=== PATIENT | male | born 1965 | race Caucasian/White ===

== ENCOUNTER 2020-08-17 15:20 | Outpatient (REF) | payer MEDICAID, SELFPAY ==
[2020-08-21 11:31] LABS: Patient Race White; SARS-CoV-2 RNA Undetected (Undetected); SARS-CoV-2 Specimen Source Nasal
== END 2020-08-17 15:40 ==
LOC: NCHCN 15:20
PROVIDERS: PCP Family Medicine; Visit Provider Nurse Practitioner Family
DX: Z20.828 Contact with and (suspected) exposure to other viral communicable diseases (principal)
CPT/HCPCS: U0003

== ENCOUNTER 2021-09-17 18:29 | Outpatient (REF) | payer MEDICAID, SELFPAY ==
[2021-09-17 16:28] LABS: HGB 13.5 g/dL (13.5-17.5); MCH 31.7 pg (27.0-33.0); MCHC 32.9 % (32.0-36.0); MCV 96.2 fL (80-95); MPV 9.1 fL (8.0-11.0); Platelet Count 266 10^3/uL (130-400); RBC 4.26 10^6/uL (4.36-5.78); RDW 12.5 % (11.8-14.1)
[2021-09-17 16:42] LABS: C-Reactive Protein 0.05 mg/dL (0.0-0.3); TSH (W/Ref FT4) 1.91 uIU/mL (0.36-3.74)
[2021-09-18 13:12] LABS: COVID-19 RT-PCR UVMMC Result Negative (Negative)
[2021-09-19 15:46] LABS: ANA Interpretation Negative (Negative)
== END 2021-09-17 18:30 | disposition home or self-care (01) ==
LOC: NCHCN 18:29
PROVIDERS: PCP Family Medicine; Visit Provider Family Medicine
DX: Z20.822 Contact with and (suspected) exposure to COVID-19 (principal); R51.9 Headache, unspecified; R68.89 Other general symptoms and signs; D70.9 Neutropenia, unspecified; K12.0 Recurrent oral aphthae
CPT/HCPCS: 85027; U0003; 84443; 86038; 86140

== ENCOUNTER 2021-10-17 16:12 | Outpatient (REF) | payer MEDICAID, SELFPAY ==
[2021-10-17 16:26] LABS: ALT 31 U/L (16-63); AST 23 U/L (15-37); Albumin 3.9 g/dL (3.4-5.0); Alkaline Phosphatase 86 U/L (46-116); Anion Gap 6.5 mmol/L (3-11); BUN 20 mg/dL (7-18); Bilirubin, Total 0.5 mg/dL (0.2-1.0); CO2 31.5 mmol/L (21.0-32.0); CREATININE 0.9 mg/dL (0.70-1.30); Calcium 9.2 mg/dL (8.5-10.1); Chloride 105 mmol/L (98-107); Folate 19.8 ng/mL (8.6-20.0); Glucose 78 mg/dL (74-106); Potassium 4.4 mmol/L (3.5-5.1); Sodium 143 mmol/L (136-145); Total Protein 7.4 g/dL (6.4-8.2); Vitamin B12 699 pg/mL (193-986)
== END 2021-10-17 16:13 | disposition home or self-care (01) ==
LOC: NCHCN 16:12
PROVIDERS: PCP Family Medicine; Visit Provider Family Medicine
DX: D75.89 Other specified diseases of blood and blood-forming organs (principal); D70.9 Neutropenia, unspecified; R42 Dizziness and giddiness; Q63.1 Lobulated, fused and horseshoe kidney
CPT/HCPCS: 80053; 82607; 82746

== ENCOUNTER 2021-12-04 02:10 | Outpatient (CLI) | payer MEDICAID, SELFPAY ==
--- NOTE | 2021-12-04 10:06 | DI.CT_ITS ---
Exam(s) CT SINUS WO EXAM: CT SINUS WO CLINICAL HISTORY: History of Fess, chronic right facial pain,h/o sinusitis,headache,r51.9, TECHNIQUE: COMPARISON: No exams were available for comparison FINDINGS: Noncontrast CT examination of the paranasal sinuses was performed. Visualized brain is unremarkable. Mastoid air cells are clear. Temporal bone structures appear inta ct. No focal orbital pathology identified by noncontrast criteria. There is a prior right maxillary antrectomy and apparent partial resection of right middle turbinate. Right maxillary antrum is clear. There are rounded radiodensities occupying majority of the volume of the left maxillary antrum consis tent with proteinaceous retention cysts or polyps. Ostiomeatal complex of the left maxillary antrum appears intact. No other specific abnormality of the nasal cavity noted. There is slight mucoperiosteal thickening of the ethmoid air cells bilaterally. Sphenoid and frontal sinuses appear clear. IMPRESSION: Prior right maxillary antrectomy, left maxillary retention cysts versus polyps. No other significant findings. RADIATION DOSE DELIVERED: 245.06mGy.cm Total DLP !Error CTDIvol RADIATION OPTIMIZATION: All CT scans at this facility use at least one of these dose optimization te chniques: automated exposure control; mA and/or kV adjustment per patient size (includes targeted exa ms where dose is matched to clinical indication); or iterative reconstruction.
== END 2021-12-04 02:30 ==
PROVIDERS: PCP Family Medicine; Visit Provider Otolaryngology
DX: G50.1 Atypical facial pain (principal); G89.29 Other chronic pain; H57.11 Ocular pain, right eye; Z87.09 Personal history of other diseases of the respiratory system; J34.89 Other specified disorders of nose and nasal sinuses; Z98.890 Other specified postprocedural states
CPT/HCPCS: 70486

== ENCOUNTER → 2023-10-15 02:16 | Outpatient (CLI) | payer MEDICAID, SELFPAY ==
--- NOTE | 2023-10-15 13:25 | DI.MRI_ITS ---
Exam(s) MR LOWER JOINT LT WO EXAM: MR LOWER JOINT LT WO CLINICAL HISTORY: H/O LT MEDIAL MENISCAL TAR,NOW PAIN AND DISABILITY AFTER RE-INJURY,M23.309. TECHNIQUE: Multiplanar multisequence MRI was performed. COMPARISON: MR MRI L LOWER JOINT WO CONT from 10/25/2014 FINDINGS: BONES: There is no fracture or contusion pattern. JOINTS: A small joint effusion is present. Articular cartilage: Patellofemoral joint: Articular cartilage is unremarkable. Medial femoral tibial joint: Articular cartilage is unremarkable. Lateral femoral tibial joint: Articular cartilage is unremarkable. TENDONS: Extensor mechanism: Unremarkable. Medial retinaculum: Unremarkable. Lateral retinaculum: Unremarkable. Popliteus: Unremarkable. MUSCLES: Unremarkable. MENISCI: The medial meniscus shows abnormal signal in the posterior horn, similar to prior exam. New tear alma ntified. The lateral meniscus is unremarkable. SOFT TISSUES: In tiny Sawyer's cyst. LIGAMENTS: Anterior Cruciate: Unremarkable. Posterior Cruciate: Unremarkable. Medial Collateral:Mild amount of surrounding fluid. No focal tear. Lateral Collateral: Unremarkable. IMPRESSION: No significant change in appearance of posterior horn of the medial meniscus with abnormal inferior s urfacing tear. No evidence of new meniscal tear. No evidence of ligament tear. DATA REPOSITORY:
== END ==
PROVIDERS: PCP Family Medicine; Visit Provider Family Medicine
DX: M23.322 Other meniscus derangements, posterior horn of medial meniscus, left knee (principal)
CPT/HCPCS: 73721

== ENCOUNTER 2024-01-27 14:19 | Outpatient (CLI) | payer MEDICAID, SELFPAY ==
--- NOTE | 2024-01-27 13:42 | DI.RAD_ITS ---
Exam(s) XR KNEE LT 3V AP,LAT,KAZ EXAM: XR KNEE LT 3V AP,LAT,KAZ CLINICAL HISTORY: LEFT KNEE PAIN. TECHNIQUE: 2D digital imaging was performed. Three views. COMPARISON: CR LEFT KNEE LIMITED 1 OR 2 VIEWS from 10/21/2014 MR MR LOWER JOINT LT WO from 10/15/2023 FINDINGS: BONES: No acute fracture is present. No bony destructive lesion is seen. JOINTS: The knee is normally aligned. No joint effusion is seen. Mild medial femoral tibial joint spa ce narrowing. Minimal periarticular spurring. Patellofemoral joint space is maintained in shows you r spurring SOFT TISSUE: Normal. IMPRESSION: Mild degenerative changes. DATA REPOSITORY: RADIATION DOSE DELIVERED:
== END 2024-01-27 14:20 | disposition home or self-care (01) ==
LOC: DIORS 14:19
PROVIDERS: PCP Family Medicine; Visit Provider Student in an Organized Health Care Education/Training Program
DX: M17.12 Unilateral primary osteoarthritis, left knee (principal)
CPT/HCPCS: 73562

== ENCOUNTER 2024-11-11 14:26 | Outpatient (REF) | payer MEDICAID, SELFPAY ==
[2024-11-11 16:01] LABS: Abs Immature Grans 0.01 10^3/uL (0.0-0.06); Absolute Basophil Count 0.04 10^3/uL (0.0-0.2); Absolute Eosinophil Count 0.05 10^3/uL (0.0-0.7); Absolute Lymphocyte Count 0.91 10^3/uL (1.2-3.4); Absolute Monocyte Count 0.54 10^3/uL (0.1-0.8); Eosinophils % 1.2 %; HCT 39.7 % (40.0-50.0); HGB 13.3 g/dL (13.5-17.5); Immature Grans % 0.2 %; Lymphocytes % 21.9 %; MCH 32.4 pg (27.0-33.0); MCHC 33.5 % (32.0-36.0); MCV 97 fL (80-95); Neutrophils % 62.7 %; Platelet Count 259 10^3/uL (130-400); RBC 4.11 10^6/uL (4.36-5.78); RDW-SD 42.6 fL; WBC 4.15 10^3/uL (4.4-10.8)
[2024-11-11 16:20] LABS: ALT 21 U/L (16-63); AST 22 U/L (15-37); Albumin 3.8 g/dL (3.4-5.0); Alkaline Phosphatase 96 U/L (46-116); Anion Gap 6.1 mmol/L (3-11); BUN 19 mg/dL (7-18); Bilirubin, Total 0.53 mg/dL (0.2-1.0); CO2 29.9 mmol/L (21.0-32.0); Calcium 9.5 mg/dL (8.5-10.1); Chloride 105 mmol/L (98-107); Estimated GFR 86.16 (mL/min/1.73m2); Glucose 94 mg/dL (74-106); Potassium 4.7 mmol/L (3.5-5.1); Sodium 141 mmol/L (136-145); TSH (W/Ref FT4) 2.84 uIU/mL (0.36-3.74); Total Protein 7.6 g/dL (6.4-8.2)
[2024-11-12 20:57] LABS: Tissue Transglutaminase Ab IgA <1.2 U/mL (<4.0); Tissue Transglutaminase Ab IgG 4.6 U/mL
== END 2024-11-11 14:27 | disposition home or self-care (01) ==
LOC: NCHCN 14:26
PROVIDERS: PCP Family Medicine; Visit Provider Student in an Organized Health Care Education/Training Program
DX: R10.9 Unspecified abdominal pain (principal); Z13.228 Encounter for screening for other metabolic disorders
CPT/HCPCS: 80053; 86364; 83516; 84443; 85025

== ENCOUNTER 2024-12-02 19:47 | Outpatient (REF) | payer MEDICAID, SELFPAY ==
[2024-12-02 20:00] LABS: Abs Immature Grans 0.01 10^3/uL (0.0-0.06); Absolute Basophil Count 0.04 10^3/uL (0.0-0.2); Absolute Eosinophil Count 0.07 10^3/uL (0.0-0.7); Absolute Lymphocyte Count 0.86 10^3/uL (1.2-3.4); Absolute Monocyte Count 0.64 10^3/uL (0.1-0.8); Absolute Neutrophil Count 3.42 10^3/uL (1.2-6.7); Basophils % 0.8 %; Eosinophils % 1.4 %; HCT 39.4 % (40.0-50.0); HGB 13.1 g/dL (13.5-17.5); Immature Grans % 0.2 %; Lymphocytes % 17.1 %; MCH 32.6 pg (27.0-33.0); MCHC 33.2 % (32.0-36.0); MCV 98 fL (80-95); MPV 9.2 fL (8.0-11.0); Monocytes % 12.7 %; Neutrophils % 67.8 %; Platelet Count 265 10^3/uL (130-400); RBC 4.02 10^6/uL (4.36-5.78); RDW 12.4 % (11.8-14.1); RDW-SD 44.8 fL; WBC 5.04 10^3/uL (4.4-10.8)
[2024-12-02 20:33] LABS: Vitamin B12 660 pg/mL (193-986)
== END 2024-12-02 19:48 | disposition home or self-care (01) ==
LOC: NCHCN 19:47
PROVIDERS: PCP Family Medicine; Visit Provider Student in an Organized Health Care Education/Training Program
DX: D64.9 Anemia, unspecified (principal)
CPT/HCPCS: 82607; 85025

== ENCOUNTER 2025-02-21 10:55 | Outpatient (REF) | payer MEDICAID, SELFPAY ==
[2025-02-21 15:43] LABS: Abs Immature Grans 0.01 10^3/uL (0.0-0.06); Absolute Basophil Count 0.04 10^3/uL (0.0-0.2); Absolute Eosinophil Count 0.04 10^3/uL (0.0-0.7); Absolute Lymphocyte Count 0.94 10^3/uL (1.2-3.4); Absolute Monocyte Count 0.46 10^3/uL (0.1-0.8); Basophils % 1.1 %; Eosinophils % 1.1 %; HCT 40.1 % (40.0-50.0); HGB 13.7 g/dL (13.5-17.5); Immature Grans % 0.3 %; Lymphocytes % 24.8 %; MCH 32.5 pg (27.0-33.0); MCHC 34.2 % (32.0-36.0); MCV 95 fL (80-95); MPV 9.2 fL (8.0-11.0); Monocytes % 12.1 %; Neutrophils % 60.6 %; Platelet Count 243 10^3/uL (130-400); RBC 4.21 10^6/uL (4.36-5.78); RDW 12.2 % (11.8-14.1); RDW-SD 42.5 fL; WBC 3.79 10^3/uL (4.4-10.8)
[2025-02-22 19:13] LABS: Calculated LDL 136 mg/dL (<100); Cholesterol 220 mg/dL (<200); HDL Cholesterol 70 mg/dL (>or=40); Triglyceride 73 mg/dL (<150)
== END 2025-02-21 10:56 | disposition home or self-care (01) ==
LOC: NCHCN 10:55
PROVIDERS: PCP Student in an Organized Health Care Education/Training Program; Visit Provider Student in an Organized Health Care Education/Training Program
DX: D64.9 Anemia, unspecified (principal); Z13.220 Encounter for screening for lipoid disorders
CPT/HCPCS: 80061; 85025

== ENCOUNTER 2025-05-17 11:18 | Emergency (ER) | payer MEDICAID, SELFPAY ==
[2025-05-17 11:35] VITALS: BP 121/75; PULSE 55; RESP 16; TEMP 36.7; O2SAT 98
--- NOTE | 2025-05-17 11:51 | W.ED.GENAD ---
Discharge Plan Disposition Patient Disposition: Home Condition: Stable Discharge Details Clinical Impression: Right knee pain Primary Care Provider: Rom Brooks ED Provider: Michele Mayberry Home Meds and New Rx's Prescriptions: Continued ibuprofen 200 mg capsule 200 mg PO Q6H PRN magnesium oxide 500 mg capsule 500 mg PO BID PRN Discharge Instructions Instructions: Knee Pain ED Additional Instructions: You were seen in the emergency department for the pain in your right knee from an injury chainsaw kicking back into your knee, you have no bony abnormality, there is a small effusion indicating a possible internal injury of the knee like a meniscus injury but your exam was suspicious for. We have provided you with a hinged knee brace, please weight-bear as tolerated, rest, ice, compress and elevate the knee often over the next few days. Please use therapeutic dosing of Tylenol (acetamenophen) & Advil (ibuprofen) in an alternating fashion as follows: Take 1000mg of Tylenol every 6 hours without missing doses- that is 4 times per day. Retirement in between the Tylenol dosings, take 400-600mg of Advil also on a 6 hour schedule, that is also 4 times per day. The daily maximum dosing of Tylenol is 4000mg, and the daily maximum dosing of Advil is 2400mg. This is safe to do for weeks. Please note that some common cold medications & prescription pain medications may contain acetamenophen and you need to read OTC drug labels and factor that in to maximum daily dosings. Please follow-up with orthopedics for persistent pain lasting longer than another 7 days please return for any signs of neurovascular compromise distal to the right knee. Referrals: [facility] [Provider Group] Rom Brooks [Primary Care Provider, Medicine] Discharge Data Discharge Date/Time-TO BE ENTERED AT DEPARTURE: 05/17/25 13:11 HPI General Date/Time Provider Initiated Documentation: 05/17/25 11:41. HPI Narrative: 59 year-old male presents to ED today by POV/ambulating with a chief complaint of minor swelling to R darling for the past two weeks after a blunt impact of the butt of a chainsaw to the area when it bucked while cutting a log. Quality described as bruise around tibial tuberosity, minor swelling to ankle- continued pain, no radiation to skin changes of bruise, instability of knee, numbness/tingling, inability to bear weight. Patient is R-side dominant. Severity is described as moderate. Palliating factors include conservative management at home without relief. Provoking factors include nothing specific. Patient has an old meniscus injury on contralateral side, feels similar. Patient not anticoagulated. Related Data Home Medications ?Medication ?Instructions ?Recorded ?Confirmed ibuprofen 200 mg capsule 200 mg PO Q6H PRN 08/27/21 05/17/25 magnesium oxide 500 mg capsule 500 mg PO BID PRN 08/27/21 05/17/25 Allergies Allergy/AdvReac Type Severity Reaction Status Date / Time Enviromental Allergy Other (See Uncoded 05/17/25 11:38 Comment) General Stated Complaint: Orthopedic RODRIGUEZ: 4 Review of Systems All systems reviewed & are unremarkable except as noted in HPI and below Exam Narrative Exam Narrative: GENERAL APPEARANCE: Well-nourished, non-toxic, awake and alert, atraumatic, no acute distress. SKIN: Warm, pink, dry, intact, without rashes/lesions/ulcerations. HEAD: Normocephalic, atraumatic, normal hair distribution for gender/age. EYES: Normal conjunctiva, no exudates on lids/lashes. ENT: Nares patent, no circumoral cyanosis, no facial swelling NECK: Supple, trachea midline, painless cervical ROM. LUNGS/CHEST: Non-labored respirations, normal A/P diameter, symmetrical expansion, no chest wall deformity HEART (CV/PV): Very minor R ankle peripheral edema, no JVD. ABDOMEN: Soft, non-distended, no guarding. MSK: Normal ROM, no swelling/deformity to bilateral UEs or LEs, moving all extremities without weakness, no cyanosis, spine midline without tenderness, normal curvature, R knee MacMurray positive, negative anterior drawer, no crepitus, no gross swelling, no popliteal fossa tenderness, patella mobile NEURO: Mental Status AAOx4 - alert to person, place, time, events No facial droop, no forehead involvement. Motor: No focal weakness - strength 5/5 in bilateral UEs and LEs, proximal and distal, symmetric. Sensory: sensation intact to light touch globally. PSYCH: euthymic, cooperative, pleasant, appropriate speech Course Vital Signs Vital signs: Vital Signs Temperature 36.7 C 05/17/25 11:35 Pulse 55 L 05/17/25 11:35 Respiratory Rate 16 05/17/25 11:35 Blood Pressure 121/75 05/17/25 11:35 Pulse Oximetry 98 05/17/25 11:35 Temperature 36.7 C 05/17/25 11:35 Temperature Source Oral 05/17/25 11:35 Pulse 55 L 05/17/25 11:35 Respiratory Rate 16 05/17/25 11:35 Blood Pressure 121/75 05/17/25 11:35 Pulse Oximetry 98 05/17/25 11:35 Oxygen Delivery Method Room Air 05/17/25 11:35 Oxygen Flow Rate 0 05/17/25 11:35 Medical Decision Making This dictation utilizes [id number] dictation software and may contain unedited grammatical errors. 59 year-old male presents to ED today by POV/ambulating with a chief complaint of minor swelling to R darling for the past two weeks after a blunt impact of the butt of a chainsaw to the area when it bucked while cutting a log. Quality described as bruise around tibial tuberosity, minor swelling to ankle- continued pain, no radiation to skin changes of bruise, instability of knee, numbness/tingling, inability to bear weight. Patient is R-side dominant. Severity is described as moderate. Palliating factors include conservative management at home without relief. Provoking factors include nothing specific. Patient has an old meniscus injury on contralateral side, feels similar. Patients' medical history: Noncontributory. Family and social history: Noncontributory. Pertinent exam findings / vital signs include minor bruise to tibial tuberosity area, MacMurray positive, negative anterior drawer, patella mobila, no crepitus, long bones above and below knee stable. Differential / pathologies of concern include fracture, internal knee injury. Diagnostic studies of: -XR R Knee - no fracture seen, does show two loose bodies. Interventions of: -Hinged knee brace, recommend PCP referral to orthopaedics. ED Course/Assessment/Plan: 59-year-old male presents injury was impacted by the chainsaw cutting tree, feels similar to a cold meniscus injury and does have a Bert positive, no major effusion or fracture seen on the x-ray and his condition is quite minor, may be some dependent edema in the ankle from not elevating it, recommend RICE therapy provided hinged knee brace and recommend routine orthopedic follow-up. Findings not consistent with fracture or neurovascular compromise. Disposition of Right Knee Pain. Patient verbalized understanding of the plan and return to ED criteria and engaged in shared decision making. Medical Records Medical records reviewed: Yes I reviewed the patient's medical records. Imaging Data Radiologic Study: Attestation: I personally reviewed and interpreted this imaging study as follows: Imaging: X-Ray Radiologist's impression: EXAM: XR KNEE RT 3V AP,LAT,KAZ CLINICAL HISTORY: R knee injury. TECHNIQUE: 2D digital imaging was performed of the right knee. Three views obtained. AP, lateral and PA tunnel views were obtained. COMPARISON: There are no priors for comparison. FINDINGS: BONES: No acute fracture is present. No bony destructive lesion is seen. JOINTS: There is mild joint space narrowing in the medial femoral tibial joint. No joint effusion is seen. There are 2 osseous densities seen posteriorly which may represent loose bodies. SOFT TISSUE: Normal. IMPRESSION: There is no acute fracture or dislocation. PFSH All Active Problems (Updated 05/17/25 @ 12:40 by AMIE Macdonald) Right knee pain (Acute) Osteoarthritis of left knee (Acute) Tear of medial meniscus of left knee (Acute) History of impacted cerumen (Acute) Chronic facial pain (Acute) History of sinusitis (Acute) Pain, eye, right (Acute) Medical History (Updated 05/17/25 @ 12:40 by AMIE Macdonald) Degenerative disc disease Carpal tunnel syndrome Sinus bradycardia, chronic H/O onychomycosis Anxiety Hyperlipidemia Cold intolerance Aphthous ulcer Neutropenia Headache Dizziness Horseshoe kidney TMJ (temporomandibular joint syndrome) Rosacea Eczema Genital herpes Irritable bowel syndrome Spinal arthritis Constipation Surgical History (Updated 11/20/21 @ 11:48 by Macrina SPAULDING) History of endoscopy History of colonoscopy 10/2021 - Normal History of endoscopic sinus surgery [facility] [place] end of , beginning of nov 2021 Family History Father Gout Mother Rosacea Other Hypertension Social History Smoking/Tobacco Use Status: Never Smoking risk assessment performed?: Yes Alcohol Intake: current Alcohol Intake frequency: holidays/special occasions only Drug use: Never Substance use type: does not use and former substance user 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
--- NOTE | 2025-05-17 12:25 | DI.RAD_ITS ---
Exam(s) XR KNEE RT 3V AP,LAT,KAZ EXAM: XR KNEE RT 3V AP,LAT,KAZ CLINICAL HISTORY: R knee injury. TECHNIQUE: 2D digital imaging was performed of the right knee. Three views obtained. AP, lateral and PA tunnel views were obtained. COMPARISON: There are no priors for comparison. FINDINGS: BONES: No acute fracture is present. No bony destructive lesion is seen. JOINTS: There is mild joint space narrowing in the medial femoral tibial joint. No joint effusion is seen. There are 2 osseous densities seen posteriorly which may represent loose bodies. SOFT TISSUE: Normal. IMPRESSION: There is no acute fracture or dislocation. DATA REPOSITORY: RADIATION DOSE DELIVERED:
== END 2025-05-17 13:11 | disposition home or self-care (01) ==
LOC: ER 12:46
PROVIDERS: Emergency Provider Physician Assistant; PCP Student in an Organized Health Care Education/Training Program
DX: M25.572 Pain in left ankle and joints of left foot (principal); M79.661 Pain in right lower leg; M25.461 Effusion, right knee
CPT/HCPCS: 73562; 99283

== ENCOUNTER 2025-05-31 01:28 | Outpatient (CLI) | payer MEDICAID, SELFPAY ==
--- NOTE | 2025-05-31 06:30 | DI.MRI_ITS ---
Exam(s) MR LOWER JOINT RT WO EXAM: MR LOWER JOINT RT WO CLINICAL HISTORY: R KNEE PAIN,internal derangement rt knee,m 25.561,m23.91 TECHNIQUE: Multiplanar multisequence MRI of the knee was performed. COMPARISON: MR MRI L LOWER JOINT WO CONT from 10/25/2014 MR MR LOWER JOINT LT WO from 10/15/2023 CR XR KNEE RT 3V AP,LAT,KAZ from 05/17/2025 FINDINGS: EFFUSION: There is a small amount of increased joint fluid. There is no Sawyer cyst in the popliteal fossa. There is a loose intra-articular body in the posterior aspect of the knee just behind the lower aspect of the ACL and corresponding to what was seen on recent plain radiographs, this measuring 7 by 7 mm MARROW:There is significant bone edema evident at the level of the anterior tibial tubercle and throughout the metaphysis and partially visualized proximal diaphysis of the tibia within the field of view of this study. There is subcutaneous edema extending from the anterior tibial level down to the anterior tibial tubercle. Also mild bone edema evident in the lateral tibial plateau. There is no abnormal intraosseous signal in the femoral condyles nor within the patella. No abnormal signal within the patella itself. PATELLOFEMORAL COMPARTMENT: There is no evidence of tear of the patellar ligament.. There is a small focus of fluid signal in the most inferior lateral aspect of the Hoffa fat pad at this level. There does not, however, appear to be a significant focus of signal abnormality within the patellar ligament itself. Also no signal abnormality in the visualized distal quadriceps tendon. There is only mild generalized thinning of the retropatellar cartilage. No evidence of osteochondral defects at this level nor bone bruise within the patella and there is no intraosseous signal to suggest recent patellar dislocation nor evidence of patellar retinacular tears. CRUCIATE LIGAMENTS: Mild increased signal is seen within the ACL but no evidence of high-grade ACL tear.The posterior cruciate ligament is intact. MEDIAL COMPARTMENT/MEDIAL MENISCUS: There is a complex tear of the posterior horn of the medial meniscus. This is predominantly oblique in the outer 3rd and horizontal in the mid-inner third. The anterior horn of the medial meniscus appears intact. There is mild-moderate thinning of the articular cartilage over the main weight- bearing surface of the medial femoral condyle. There is no subarticular edema at this level nor osteochondral defect in the medial femoral condyle.Tiny marginal osteophytes noted MEDIAL COLLATERAL LIGAMENT: There is some sprain signal evident in the medial collateral ligament and there is some fluid within the MCL interposed between the deep and superficial components of this structure. There does not, however, appear to be a full-thickness tear of the MCL. LATERAL COMPARTMENT/LATERAL MENISCUS: There is no evidence of lateral meniscal tear. There is relative preservation of articular cartilage in the lateral compartment. There is no subarticular bone edema nor OCD in the lateral femoral condyle and there are no marginal osteophytes in the lateral condyle. There is mild subjacent bone edema evident in the lateral tibial plateau. ILIOTIBIAL BAND: Intact LATERAL COLLATERAL LIGAMENT COMPLEX: The fibular collateral ligament is intact. The biceps femoris tendon is intact.There is some fluid evident with in the popliteus tendon sheath but no high-grade tear of this structure. IMPRESSION: 1. Multilevel findings as described individually above. 2. There is subcutaneous edema over the anterior aspect of the knee and prominent bone bruising in the tibia having its epicenter at the anterior tibial tubercle level and with this bone edema extending into the proximal tibial metaphysis and down into the diaphysis beyond the field of view of this study. Also mild bone edema and subtle trabecular lines evident in the lateral tibial plateau. There is no depressed lateral tibial plateau fracture. 3. There is a complex tear of the posterior horn of the medial meniscus and there is sprain signal in the medial collateral ligament as well as some thin fluid component interposed between the deep and superficial layers of the MCL. There is, however, no high-grade MCL tear evident. There are mild os teoarthritic degenerative changes evident in the medial compartment articular cartilage over the main weight-bearing surface of the medial condyle. There is no subarticular edema in the medial femoral condyle and there are no osteochondral defects 4. There are no significant cruciate ligament tears. Lateral collateral ligament complex appears intact although there does appear to be some fluid in the region of the popliteus tendon sheath 5. There is a small amount of increased joint fluid. No large joint effusion in the knee and no Sawyer cyst. However, there is a calcified loose body seen posteriorly in the intra-articular compartment immediately behind the lower aspect of the ACL, this measuring 7 x 7 mm and corresponding to what is seen on recent plain films. 6. No abnormal signal within the patella itself nor within the quadriceps tendon. DATA REPOSITORY:
== END 2025-05-31 01:48 ==
LOC: DI 01:28
PROVIDERS: PCP Student in an Organized Health Care Education/Training Program; Visit Provider Student in an Organized Health Care Education/Training Program
DX: M25.561 Pain in right knee (principal); S83.231A Complex tear of medial meniscus, current injury, right knee, initial encounter; X58.XXXA Exposure to other specified factors, initial encounter
CPT/HCPCS: 73721